=== PATIENT | female | born 1945 | race Caucasian/White ===

== ENCOUNTER 2024-05-25 12:26 | Outpatient (CLI) | payer OTHER, SELFPAY ==
[2024-05-25 13:15] LABS: INR 2.2; Prothrombin Time 24.8 Seconds (11.1-14.7)
[2024-05-25 13:16] LABS: Partial Thromboplastin Time 36.5 Seconds (22.3-36.8)
[2024-05-25 13:23] LABS: Anion Gap 8 mmol/L (4-12); Blood Urea Nitrogen 16 mg/dL (7-17); Calcium 9.5 mg/dL (8.4-10.2); Carbon Dioxide 29 mmol/L (22-30); Chloride 106 mmol/L (98-107); Estimated Glomerular Filt Rate > 60; Glucose 114 mg/dL (65-110); Potassium 3.8 mmol/L (3.4-5.0); Sodium 143 mmol/L (137-145)
== END 2024-05-25 12:27 | disposition home or self-care (01) ==
PROVIDERS: Anesthesiology; PCP Family Medicine; Visit Provider Obstetrics & Gynecology
DX: Z01.818 Encounter for other preprocedural examination (principal); I10 Essential (primary) hypertension; Z79.01 Long term (current) use of anticoagulants
CPT/HCPCS: 36415; 80048; 85610; 85730

== ENCOUNTER 2024-05-26 00:15 | Day surgery (SDC) | payer OTHER, SELFPAY ==
--- NOTE | 2024-05-24 13:30 | PC.NURSE ---
Report to the Outpatient Waiting Room, entrance under the green pavilion located off [facility], at time __9:00 AM on date __05/26/24 . Planned Procedure Time: _11:00 AM . Time changes happen often and if your time is changed the preop area will call you the afternoon before. - You and your visitor will be asked to self-screen and do not enter if you have any COVID symptoms. - A mask is optional within the hospital at this time. Patients may have clear liquids (water, carbonated beverages, clear teas, apple juice) until 3 hours prior to surgery ( 8:00 AM)with a maximum of 20 ounces. - No food from midnight until time of surgery - Infants may have breast milk until 4 hours before surgery, infant formula 6 hours prior to surgery. - Children will be allowed to drink immediately following surgery. If applicable, please bring a bottle or sippy cup to assist with drinking. Juice, water, soda, and popsicles are readily available. For infants on formula, please bring formula the day of surgery. Pacifiers are allowed. Take the following medications with a SIP of water the morning of surgery: ____EYE DROP DO NOT STOP ANY OF YOUR OTHER PRESCRIPTION MEDICATIONS PRIOR TO SURGERY ?EXCEPT THE FOLLOWING Medications to discontinue per physician __DO NOT STOP WARFARIN PER DR TYLER AND CAR REFINISHER.HOLD ALL VITAMINS AND SUPPLEMENT____3 DAYS PRE OP .LAST DOSE 05/24/24 Please no make-up, nail italian, hairspray, perfume, deodorant, or body powder the day of surgery. No jewelry (including any body piercings) or valuables the day of surgery, leave them at home. Please take a shower or bath the night before, or the morning of, surgery with an antibacterial soap. Wear comfortable, loose fitting clothing. Children are encouraged to wear pajamas. - Jewelry must be removed prior to entering the operating room. Rings and piercings that are not removed may be cut off. - The hospital will not accept responsibility for valuables. - Please leave all valuables, including medications, at home the day of surgery. If you are going home after surgery, a licensed shuttle van driver must drive you home. - NO public transportation without another adult if you receive anesthesia. - We recommend that an adult stay with you for 24 hours following discharge. - We also recommend that you do not drive, make important decision, drink alcoholic beverages, or take any drugs that were not prescribed by your health care provider for at least 24 hours after your discharge time. For Pediatric surgeries, we recommend two adults accompany the child home. Follow any additional instructions given to you from your surgeon. If you or anyone in your household have experienced Covid symptoms in the past week, please notify your surgeon or the nurse liaison at the phone number below for possible testing. Telephone instructions given to __PATIENT and asked if any additional questions and then verbalized understanding. Patient advised to call surgeon office or pre surgery nurse liaison [phone] if any additional questions.
[2024-05-24 14:42] VITALS: BMI 35.1
[2024-05-26 09:41] VITALS: BP 152/85; PULSE 69; RESP 14; TEMP 36.4; O2SAT 97
[2024-05-26 09:45] LABS: INR 2.1; Prothrombin Time 23.6 Seconds (11.1-14.7)
[2024-05-26 09:46] LABS: Partial Thromboplastin Time 35.3 Seconds (22.3-36.8)
--- NOTE | 2024-05-26 10:32 | WPDANESEPPF ---
Anes - Initial Pre Proc Eval Procedure: Operation Date: 05/26/24 11:00 Proposed Procedures p Hysteroscopy Dilation and Curettage - Eitan Carrasco MD Date/Time: 05/26/24 10:32 Surgeon: Eitan Carrasco MD Pre Op Diagnosis: Post Menopausal Bleed Patient Data Age: 78 Gender: F Height: 1.55 m Weight: 84 kg Last Vital Signs Temp 36.4 C 05/26/24 09:41 Pulse 69 05/26/24 09:41 Resp 14 05/26/24 09:41 BP 152/85 H 05/26/24 09:41 Pulse Ox 97 05/26/24 09:41 O2 Del Method Room Air 05/26/24 09:41 Allergies Allergy/AdvReac Type Severity Reaction Status Date / Time No Known Allergies Allergy Unknown Verified 05/26/24 09:44 Home Medications Medication Instructions Recorded Confirmed Type acetaminophen 500 mg capsule 500 mg PO Q6H PRN Pain 05/24/24 05/24/24 History calcium carbonate 500 mg-vitamin 1 tablet PO DAILY 05/24/24 05/24/24 History D3 3.125 mcg (125 unit) tablet cetirizine 10 mg capsule (Zyrtec) 10 mg PO HS 05/24/24 05/24/24 History cholecalciferol (vitamin D3) 125 125 mcg PO BID 05/24/24 05/24/24 History mcg (5,000 unit) tablet cyanocobalamin (vitamin B-12) 1,000 mcg PO EVERY OTHER DAY 05/24/24 05/24/24 History 1,000 mcg tablet diclofenac sodium 1 % topical gel 2 ea topical PRN PRN Pain 05/24/24 05/24/24 History fluticasone propionate 50 1 spray intranasal DAILY 05/24/24 05/24/24 History mcg/actuation nasal spray,suspension furosemide 40 mg tablet 40 mg PO DAILY 05/24/24 05/24/24 History ibandronate 150 mg tablet 150 mg PO MONTHLY 05/24/24 05/24/24 History losartan 50 mg tablet 50 mg PO DAILY 05/24/24 05/24/24 History melatonin 3 mg tablet 3 mg PO HS PRN Insomnia 05/24/24 05/24/24 History multivitamin with minerals-folic 1 tablet PO EVERY OTHER DAY 05/24/24 05/24/24 History acid 0.4 mg tablet (One-A-Day Women's 50 Plus) olopatadine 0.2 % eye drops 1 drp EACH EYE DAILY 05/24/24 05/26/24 History (Pataday Once Daily Relief) potassium chloride 20 mEq 30 meq PO DAILY 05/24/24 05/24/24 History tablet,extended release(part/cryst) (Klor-Con M) warfarin 2 mg tablet 2 mg PO HS 05/24/24 05/26/24 History Laboratory Tests 05/26/24 09:27 PT 23.6 H Seconds (11.1-14.7) INR 2.1 APTT 35.3 Seconds (22.3-36.8) Patient hx anesthesia problems: none Family hx anesthesia problems: none Results Review: All pre-operative results and documents have been reviewed as part of the pre-operative evaluation. [facility] Social History Social History Smoking status: Never smoker Living arrangements: alone Spiritual care concerns: No Anes - Eval Final PreProcedure Day of Procedure 05/26/24 10:32 Patient weight: obese Heart: irregular rhythm Lungs: clear to auscultation Airway: Mallampati scale class II Neurological: alert and oriented Last oral intake: >/= 8 hours ASA classification: III Emergent: no Anesthetic plan: proceed Anesthesia type and monitoring: general GIVS and standard monitoring Results Review: All pre-operative results and documents have been reviewed as part of the pre-operative evaluation. Informed Consent: The patient's anesthetic plan and its attendant risks and benefits were discussed with the patient/family/POA. Questions were solicited and answers provided to the satisfaction of the patient/family/POA.
--- NOTE | 2024-05-26 11:38 | PM.IMHP ---
H&P: HPI History of Present Illness Date/Time: 05/26/24 11:38 Chief Complaint: Vaginal bleeding Narrative: 78 y/o with two episodes of vaginal bleeding. No pain. Taking Coumadin. Pelvic ultrasound in ED failed to visualize endometrium well. Review of Systems Review of Systems: All systems reviewed & are unremarkable except as noted in HPI and below PMFSH Past Medical History Medical History History of cardiac arrhythmia History of chronic hypertension Social History Social History Smoking status: Never smoker Living arrangements: alone Spiritual care concerns: No Meds Home Medications and Allergies Home Medications Medication Instructions Recorded Confirmed Type acetaminophen 500 mg capsule 500 mg PO Q6H PRN Pain 05/24/24 05/24/24 History calcium carbonate 500 mg-vitamin 1 tablet PO DAILY 05/24/24 05/24/24 History D3 3.125 mcg (125 unit) tablet cetirizine 10 mg capsule (Zyrtec) 10 mg PO HS 05/24/24 05/24/24 History cholecalciferol (vitamin D3) 125 125 mcg PO BID 05/24/24 05/24/24 History mcg (5,000 unit) tablet cyanocobalamin (vitamin B-12) 1,000 mcg PO EVERY OTHER DAY 05/24/24 05/24/24 History 1,000 mcg tablet diclofenac sodium 1 % topical gel 2 ea topical PRN PRN Pain 05/24/24 05/24/24 History fluticasone propionate 50 1 spray intranasal DAILY 05/24/24 05/24/24 History mcg/actuation nasal spray,suspension furosemide 40 mg tablet 40 mg PO DAILY 05/24/24 05/24/24 History ibandronate 150 mg tablet 150 mg PO MONTHLY 05/24/24 05/24/24 History losartan 50 mg tablet 50 mg PO DAILY 05/24/24 05/24/24 History melatonin 3 mg tablet 3 mg PO HS PRN Insomnia 05/24/24 05/24/24 History multivitamin with minerals-folic 1 tablet PO EVERY OTHER DAY 05/24/24 05/24/24 History acid 0.4 mg tablet (One-A-Day Women's 50 Plus) olopatadine 0.2 % eye drops 1 drp EACH EYE DAILY 05/24/24 05/26/24 History (Pataday Once Daily Relief) potassium chloride 20 mEq 30 meq PO DAILY 05/24/24 05/24/24 History tablet,extended release(part/cryst) (Klor-Con M) warfarin 2 mg tablet 2 mg PO HS 05/24/24 05/26/24 History Allergies Allergy/AdvReac Type Severity Reaction Status Date / Time No Known Allergies Allergy Unknown Verified 05/26/24 09:44 Vital Signs Vital Signs - 24 hr 05/26/24 09:41 Temperature 36.4 C Pulse Rate 69 Respiratory Rate 14 Blood Pressure 152/85 H Pulse Oximetry 97 Oxygen Delivery Room Air Exam Const: Orientation/consciousness: patient oriented x3 Other: Well-developed, well-nourished female in no acute distress. Neck: Thyroid: thyroid normal Lymphatic: no lymphadenopathy noted (in neck, axilla or inguinal nodes) Resp: Effort & Inspection: normal respiratory effort Auscultation: clear to auscultation bilaterally Cardio: Rate: regular rate Rhythm: regular rhythm Heart sounds: S1 normal heart sound present and S2 normal heart sound present GI: Other: ABD: Soft, nontender, nondistended. No guarding or rebound tenderness. No hepatosplenomegaly. : General: Yes no CVA tenderness Other: Deferred to OR Back/Spine/Pelvis: Back: no CVA tenderness Skin: General skin exam: normal color and no rashes or lesions noted Neuro: General: patient oriented x3 Extrem: Other: Extremities: nontender with no edema Psych: Mental Status: mental status grossly normal Affect: normal affect Assessment and Plan Assessment and plan (1) Postmenopausal bleeding: Code(s): N95.0 - Postmenopausal bleeding Status: Acute Assessment and Plan: A: Postmenopausal bleeding. P: Offered hysteroscopy with dilation and sharp curettage. She understands risks of surgery to include risks of anesthesia, risks of pain, infection, bleeding, blood products, thromboembolic phenomena and damage to adjacent structures such as bowel, blad
--- NOTE | 2024-05-26 11:42 | WPDHPUPDATE1 ---
History and Physical Update Update Date/Time: 05/26/24 11:42 History and Physical has been reviewed, including an updated exam of the patient. There are NO changes in the patient's condition. Risks, benefits, and alternatives have been discussed and questions answered. Patient agrees to proceed with procedure.
--- NOTE | 2024-05-26 13:11 | W.PM.PROC2 ---
Procedure Note - Detailed Date of Procedure 05/26/24 Pre-op Diagnosis Post Menopausal Bleeding Post-op Diagnosis Same Procedure Performed Hysteroscopy Dilation and sharp curettage Endometrial polypectomy Surgeon Eitan Carrasco MD Anesthesia MAC and Local (1% lidocaine) Findings Three endometrial masses, appear to be polyps. Both tubal ostia seen. Description of Procedure The patient was taken to the operating room where she was prepared and draped in the usual sterile fashion in the dorsal lithotomy position. The bladder was drained with a red rubber catheter. A sterile speculum was placed into the vagina. The anterior lip of the cervix was grasped with single-tooth tenaculum. Ten mL of 1% lidocaine was administered in a paracervical block. The cervix was then gently dilated using Hegar dilators until a 7 mm dilator could be passed. Hysteroscopy was performed using sterile saline as a distention medium. Findings are as noted above. The Aveta resector was advanced and the three endometrial masses shaved until flush with the endometrial wall. Sharp curettage was then performed, and scant endometrial curettings were collected on a Telfa pad and passed off to be sent to pathology. Hemostasis was excellent. Sponge, lap, needle and instrument counts were correct. The patient was awakened and taken to the recovery room in stable condition. I was present and scrubbed through the entire procedure. Implants None Estimated Blood Loss 10 Drains No Packing No Pathology Yes (Endometrial curettings) Complications None Condition Stable Disposition PACU
[2024-05-26 13:12] VITALS: BP 136/68; PULSE 70; RESP 18; O2SAT 98
[2024-05-26] MEDS: LIDOCAINE HCL 1% LOCAL INJ 20 ML VIAL 10 ML INFILTRATE (13:18)
[2024-05-26 13:45] VITALS: BP 140/80; PULSE 81; RESP 16
[2024-05-26 14:15] VITALS: BP 136/88; PULSE 70; RESP 16
== END 2024-05-26 14:29 | disposition home or self-care (01) ==
PROVIDERS: Anesthesiology; PCP Family Medicine; Visit Provider Obstetrics & Gynecology
PROC: 0U5B8ZZ Destruction of Endometrium, Via Natural or Artificial Opening Endoscopic (ICD-10-PCS; CPT 58563; principal; 2024-05-26 11:00)
DX: N95.0 Postmenopausal bleeding (principal); D25.9 Leiomyoma of uterus, unspecified; E66.9 Obesity, unspecified; Z68.35 Body mass index [BMI] 35.0-35.9, adult
CPT/HCPCS: 58558; 36415; 80048; 85610; 85730; 88305; J2704; J3010